=== PATIENT | male | born 1985 | race Caucasian/White ===

== ENCOUNTER 2023-06-22 15:34 | Emergency (ER) | payer OTHER ==
[~2023-06-22] VITALS: Ht 185.4 cm; Wt 74.8 kg
== END 2023-06-23 07:44 | disposition designated cancer center or children's hospital (05) ==
LOC: ER 15:35
PROVIDERS: General Practice
DX: S61.322A Laceration with foreign body of right middle finger with damage to nail, initial encounter (principal); W45.8XXA Other foreign body or object entering through skin, initial encounter; Y93.89 Activity, other specified; Y92.89 Other specified places as the place of occurrence of the external cause; Z91.013 Allergy to seafood; Z91.041 Radiographic dye allergy status; Z20.822 Contact with and (suspected) exposure to COVID-19